=== PATIENT | male | born 1965 | race Caucasian/White ===

== ENCOUNTER 2018-07-13 09:23 | Emergency (ER) | payer OTHER ==
[2018-07-13 09:33] VITALS: BMI 33.7
[2018-07-13] MEDS ORDERED: ALBUTEROL SO4 2.5/IPRATROPIUM 0.5 INH SOL 3 ML VIAL.NEB. NEB ONE ×2 (10:09→10:57)
[2018-07-13] MEDS: ALBUTEROL SO4 2.5/IPRATROPIUM 0.5 INH SOL 3 ML VIAL.NEB. NEB SCH ×4 (10:12→10:53)
[2018-07-13 10:29] LABS: BASO % 0.5 % (0-2.0); HEMATOCRIT 45.4 % (35.4-49); LYMPH % 25.3 % (8-40); MCH 30.9 pg (25.7-33.7); MCHC 35.3 g/dl (32.0-35.9); MEAN CELL VOLUME 87.7 fl (80-96); MEAN PLT VOLUME 8.9 fl (7.5-11.1); MONO % 8.3 % (3.8-10.2); NEUT % 61.9 % (42.8-82.8); PLATELET COUNT 256 K/MM3 (134-434); RBC 5.18 M/mm3 (4.00-5.60); RDW 12.2 % (11.9-15.9); WHITE BLOOD COUNT 12.6 K/mm3 (4.0-10.0)
[2018-07-13] MEDS ORDERED: IBUPROFEN 600 MG TABLET (FP) PO ONE ×2 (10:57→11:06)
--- NOTE | 2018-07-13 11:02 | PDOC ---
Attending Attestation - Resident Resident Name: EddiejpCindy - ED Attending Attestation I have performed the following: I have examined & evaluated the patient, The case was reviewed & discussed with the resident, I agree w/resident's findings & plan - HPI HPI: 07/13/18 11:00 52 YOM with h/o HLD and HTN, arthritis, COPD on Advair presenting with chest pain and SOB with coughing since last night. He endorses productive clear cough/ congestion and generalized malaise x 4 days beginning Monday. Also endorses dull pressure frontal BOYER 3-4 days ago,, a/w SOB worse with coughing. Works for the [employer], possible sick contacts. Last night, acute chest pain at 10pm, pressure, left anterior cp, worse with movement and reproducible, s/p ASA 81mg with some improvement. Did not take any analgesia meds. Current smoker. Uses Advair intermittently for his COPD dxd by his primary doctor. 07/13/18 11:00 - Physicial Exam PE: 07/13/18 11:00 NAD, well appearing, PERRL, EOMI, MMM, nl conjunctiva, anicteric; neck supple. lungs clear, RRR, abdomen soft nontender. COLLAZO x4, no focal neuro deficits. No peripheral edema. normal color for ethnicity, WWP. no calf tenderness or leg swelling - Medical Decision Making 07/13/18 11:00 See HPI for details Vital signs reviewed, mildly hypertensive 160/100. Normal HR Repeat BP 140/90s. DDx chest pain: ACS, coronary vasospasm, NSTEMI, arrhythmia, unstable angina, PE , dissection, PUD, esophageal spasm, GERD, gastritis, costochondritis, pneumonia , pleurisy, pericarditis/myocarditis. dehydration, electrolyte/metabolic derangements. clinically considered but doubt PE, no DVT/PE risk factors, and more likely etiology of URI sx. cp is reproducible, with cough and movement, so less likely cardiac and more msk in nature. more likely inciting factor is URI sx. Prior notes reviewed, including admissions, discharges and consultations. laboratory results and imaging reviewed, basic labs and lytes wnl, notable for nonspecific leukocytosis, could be infectious/stress state. no fever, does not appear septic or toxic. CXR_no acute chest pathology. Neg flu Cardiac panel_neg trop x2 EKG normal sinus rhythm at 79 bpm, no interval abnormalities, narrow QRS, ST and T wave segments and morphology normal. Nonspecific T wave abnormalities in III only, no contiguous lead changes - similar to prior EKG ED course: No acute events Heart score 3 - Low risk and probability for ACS, less than 1% risk for MACE at 30 days. Given risk factors including some medical comorbidities, gender, and tobacco use. Feels improved with duonebs for the cough. Ibuprofen for chest pain, which is reproducible in nature. Trop negative, less likely cardiac/ACS EKG similar to prior, nonischemic, no ST segment derangements smoking cessation advised. rx albuterol inhaler Q4-6 hr as needed for his cough, minimize triggers, supportive care for his URI sx. pt informed of my clinical impression, treatment recommendations and disposition plan. All questions answered to patient's satisfaction and expressed understanding and comfort with this. Reasons for returning to the ED sooner discussed with the patient otherwise, follow up with primary care physician. At the time of discharge, the patient is alert, clinically improved, tolerating po and verbalizes understanding of instructions. Patient does not suffer from an acute life-threatening medical condition at this time he is safe for outpatient follow-up. 07/13/18 11:04 07/13/18 12:30 07/13/18 13:23 Heart Score/ECG Review - History History: Slightly suspicious - Electrocardiogram EKG: Normal - Age Age: 45-65 - Risk Factors Risk Factors Heart Score: Yes Hx Hypercholesterolemia, Yes Hx Hypertension, Yes Smoking History Based on the list above the patient has:: >/=3 risk factors or Hx atherosclerotic disease - Troponin Troponin: </= normal limit - Score Heart Score - Total: 3 #1 ECG reviewed & interpreted by me at: 09:20 General ECG Interpretation: Sinus Rhythm Compared to previous ECG there are: No significant change 07/13/18 11:01 EKG normal sinus rhythm at 79 bpm, no interval abnormalities, narrow QRS, ST and T wave segments and morphology normal. Nonspecific T wave abnormalities in III only, no contiguous lead changes - similar to prior EKG
--- NOTE | 2018-07-13 11:05 | PDOC ---
History of Present Illness - General Chief Complaint: Chest Pain Stated Complaint: CHEST PAIN Time Seen by Provider: 07/13/18 09:30 - History of Present Illness Initial Comments: Fabian Rogers is a 52yo man with a PMH of HTN, HLD, COPD, current smoker who presents with 3-4 days of malaise, frontal headache, nasal congestion, and new onset of chest pain that started yesterday. He reports that he was not taking any medication for the malaise, headache and congestion as it was not bothering him much; the headache is a 3/10 constant, non-focal ache. However, he started coughing more than normal over the past few days as well. Last night around 11pm , he started to have left upper chest pain. He was concerned that the pain was due to a problem with his heart and took aspirin with slight improvement. The pain is worst with movement and coughing, and it is not related to exertion nor associated with diaphoresis, lightheadedness. It does not radiate. Mr Rogers does endorse some increased SOB with his cough, but it is not significantly worse than his baseline. Mr Rogers denies fevers, chills, known sick contacts (though has contact with general public at work), nausea/vomiting, or any other recent symptoms. He endorses a previous diagnosis of COPD and was prescribed Advair, but he has never consistently taken the Advair and has not been doing so recently. Past History - Past Medical History Allergies/Adverse Reactions: Allergies Allergy/AdvReac Type Severity Reaction Status Date / Time niacin Allergy REDNESS Verified 08/26/14 07:17 Home Medications: Ambulatory Orders Alprazolam [Xanax -] 1 mg PO PRN 08/26/14 Paroxetine HCl [Paxil] 37.5 mg PO HS 08/26/14 Albuterol Sulfate Inhaler - [Ventolin HFA Inhaler -] 1 - 2 inh PO Q4H PRN #1 inhaler 07/13/18 Amlodipine/Atorvastatin [Amlodipine-Atorvast 5-40 mg] 1 each PO DAILY 07/13/18 Inhaler, Assist Devices [Space Chamber Plus] 1 each MC Q4H #1 spacer 07/13/18 COPD: No HTN: Yes Hypercholesterolemia: Yes - Suicide/Smoking/Psychosocial Hx Smoking Status: Yes Smoking History: Current every day smoker Number of Cigarettes Smoked Daily: 30 Information on smoking cessation initiated: Yes Hx Alcohol Use: No Drug/Substance Use Hx: No Substance Use Type: None Review of Systems - Review of Systems Comments:: General: No fevers, no chills, no weight or appetite change, no malaise HEENT: No changes in vision, no changes in hearing, +headache, +congestion, + sore throat CV: +upper left chest pain, no palpitations, no LE edema Pulm: +SOB, +cough, no wheezing GI: No nausea or vomiting, no change in bowel habits, no melena : No frequency, no urgency, no dysuria Musc: No back pain, no joint swelling, no recent injury Skin: No rash, no lesions, no erythema Endo: No excessive thirst, no heat/cold intolerance Heme: No unusual bruising or bleeding, no swollen glands Neuro: No syncope, no numbness/tingling, no focal weakness Vasc: No claudication Psych: No recent change in mood, no SI or HI *Physical Exam - Vital Signs Last Vital Signs Temp Pulse Resp BP Pulse Ox 98.4 F 79 18 141/93 100 07/13/18 10:12 07/13/18 10:02 07/13/18 10:02 07/13/18 10:02 07/13/18 10:02 - Physical Exam Comments: General: Comfortable, no acute distress HEENT: PERRL, EOMI, MMM, voice normal, minimal pharyngeal erythema, no exudates Cards: RRR, no murmur appreciated Pulm: Comfortable on room air, clear to auscultation bilaterally Abd: Soft, nontender, nondistended Ext: Atraumatic. No LE edema. ROM intact. Strength 5/5 and equal bilaterally Vasc: Extremities WWP. Skin: Normal color, no rashes or lesions Neuro: A&Ox3, CN grossly intact, normal speech, motor/sensory grossly intact and symmetric Psych: Mood appropriate to situation Moderate Sedation - Procedure Monitoring Vital Signs: Procedure Monitoring Vital Signs Temperature 98.4 F 07/13/18 10:12 Pulse Rate 79 07/13/18 10:02 Respiratory Rate 18 07/13/18 10:02 Blood Pressure 141/93 07/13/18 10:02 O2 Sat by Pulse Oximetry (%) 100 07/13/18 10:02 ED Treatment Course - LABORATORY CBC & Chemistry Diagram: 07/13/18 10:00 07/13/18 10:00 - ADDITIONAL ORDERS Additional order review: 07/13/18 10:00 RBC 5.18 MCV 87.7 MCHC 35.3 RDW 12.2 MPV 8.9 Neutrophils % 61.9 Lymphocytes % 25.3 Monocytes % 8.3 Eosinophils % 4.0 Basophils % 0.5 - RADIOLOGY Radiology Studies Ordered: Category Date Time Status CHEST PA & LAT [RAD] Stat Radiology 07/13/18 09:56 Ordered Medical Decision Making - Medical Decision Making 07/13/18 10:38 Fabian Rogers is a 52yo man with a PMH of HTN, HLD, COPD (not taking his Advair), current smoker who presents with 3-4 days of malaise, frontal headache , nasal congestion, and now reproducible left upper chest pain that started at 11pm yesterday. - Reassuring physical exam. BP initially recorded as high. Rechecked during exam , 140/90's - Most likely URI, possibly COPD exaccerbation. Chest pain reproducible and also occurs w/ deep breaths and arm movements. Low suspicion for ACS but will r/ o w/ EKG and trop - No known fever, but will r/o pneumonia. CXR PA and lat ordered - CBC, CMP for evaluation - Duonebs Q15m for SOB as he has not been taking home meds. 07/13/18 12:13 - Labs reviewed. Slight leukocytosis to 12 but no concerning abnormalities. Trop negative - Feels improved after nebs - Will repeat trop at 3hrs 07/13/18 12:29 - Sending 2nd trop now - Most likely d/c home if trop is negative - Strongly advised Mr Rogers to stop smoking. He understands. Discussed home care and need for PMD follow up within a week. Will give rescue inhaler for COPD exacerbation. Strongly advised to take all of his home medications as prescribed. 07/13/18 13:16 - 2nd trop negative, will d/c Discussed with Dr Davis. Cindy Saenz PGY1 *DC/Admit/Observation/Transfer Diagnosis at time of Disposition: COPD exacerbation - Discharge Dispostion Disposition: HOME Condition at time of disposition: Stable Decision to Admit order: No - Prescriptions Prescriptions: Albuterol Sulfate Inhaler - [Ventolin HFA Inhaler -] 1 - 2 inh PO Q4H PRN #1 inhaler PRN Reason: Short Of Breath/Wheezing Inhaler, Assist Devices [Space Chamber Plus] 1 each MC Q4H #1 spacer - Referrals Referrals: ON STAFF,NOT [Non Staff, Medical] - [facility] [Provider Group] - Patient Instructions Printed Discharge Instructions: DI for Chronic Obstructive Pulmonary Disease Additional Instructions: Discharge Instructions: You were seen in the ER for headache, shortness of breath and chest pain. You had blood tests, including one that checks your heart, an EKG and a chest Xray. Your test results were all normal. Your shortness of breath may be due to a respiratory infection along with your COPD. Home Care and Follow Up: - Drink plenty of fluids, especially water - Take ALL of your home medications as prescribed by your doctor. Make sure you are taking your blood pressure medications and your daily COPD medication - Use 650-1000mg acetaminophen (Tylenol) or 600mg ibuprofen (Advil or Motrin) every 6-8 hours as needed for your headache and discomfort. - You have been prescribed a rescue inhaler to use while you are feeling short of breath. This can be used every 4-6 hours as needed for wheezing or shortness of breath - It is strongly recommended that you quit smoking immediately - Make an appointment to see your regular doctor within the next week for follow up. If you need to establish care, you have been referred to the [facility] - Seek immediate medical care if you have worsening symptoms, chest pain with exercise, difficulty breathing, develop fevers to 101F or change in your cough/ sputum, or any other medical emergency. - Post Discharge Activity Forms/Work/School Notes: Back to Work
[2018-07-13 11:31] LABS: ALBUMIN 3.9 g/dl (3.4-5.0); ALK PHOS 79 U/L (45-117); ANION GAP 7 MMOL/L (8-16); BILIRUBIN,TOTAL 0.4 mg/dL (0.2-1); BLOOD UREA NITROGEN 15 mg/dL (7-18); CALCIUM 8.9 mg/dL (8.5-10.1); CHLORIDE 104 mmol/L (98-107); CO2 27 mmol/L (21-32); CREATININE 0.8 mg/dL (0.55-1.3); GLUCOSE,RANDOM 104 mg/dL (74-106); MAGNESIUM 2.4 mg/dL (1.8-2.4); PHOSPHOROUS 4.4 mg/dL (2.5-4.9); POTASSIUM 3.9 mmol/L (3.5-5.1); SGOT/AST 19 U/L (15-37); SGPT/ALT 40 U/L (13-61); SODIUM 137 mmol/L (136-145); TOT PROT 7.2 g/dl (6.4-8.2)
[2018-07-13 13:30] VITALS: BP 138/89; PULSE 72; TEMP 98.3
--- NOTE | 2018-07-14 17:13 | EKG ---
Test Reason : Blood Pressure : / mmHG Vent. Rate : 079 BPM Atrial Rate : 079 BPM P-R Int : 148 ms QRS Dur : 096 ms QT Int : 390 ms P-R-T Axes : 053 014 049 degrees QTc Int : 447 ms NORMAL SINUS RHYTHM INCOMPLETE RIGHT BUNDLE BRANCH BLOCK BORDERLINE ECG WHEN COMPARED WITH ECG OF 26-JAN-2007 11:25, INCOMPLETE RIGHT BUNDLE BRANCH BLOCK IS NOW PRESENT Confirmed by YANIRA LYONS, MARCELA ([id number]) on 07/14/2018 5:12:50 PM Referred By: Confirmed By:MARCELA DOYLE MD
== END 2018-07-13 13:15 | disposition home or self-care (01) ==
LOC: JER 09:23
PROC: 3E0F7GC Introduction of Other Therapeutic Substance into Respiratory Tract, Via Natural or Artificial Opening (ICD-10-PCS; principal; 2018-07-13)
DX: J44.9 Chronic obstructive pulmonary disease, unspecified (principal); F17.210 Nicotine dependence, cigarettes, uncomplicated; I10 Essential (primary) hypertension; E78.00 Pure hypercholesterolemia, unspecified
CPT/HCPCS: 36415; 71046-TC-FY; 80053; 82550; 82553; 83735; 84100; 84484; 85025; 87804; 93005; 93010; 99284-25